=== PATIENT | male | born 1965 | race Caucasian/White ===

== ENCOUNTER 2019-02-01 12:12 | Inpatient (IN) | payer SELFPAY ==
[~2019-02-01] VITALS: Ht 172.7 cm; Wt 75.7 kg
[2019-02-01 12:31] VITALS: BP 124/91
[2019-02-01] MEDS ORDERED: NACL 0.9% 250 ML IV ONE (14:50)
[2019-02-01] MEDS ORDERED: NACL 0.9% 1,000 ML IV SCH (15:42)
[2019-02-01] MEDS ORDERED: DEXT 5% /NACL 0.9% 1,000 ML IV SCH (15:42)
[2019-02-01] MEDS ORDERED: DOCUSATE SODIUM 100 MG GELCAP PO PRN (15:45)
[2019-02-01] MEDS ORDERED: LORazepam 2 MG/ML VIAL IM/IVP PRN (15:45)
[2019-02-01] MEDS ORDERED: HYDROcodone/APAP 7.5/325 MG 1 TAB PO PRN (15:45)
[2019-02-01] MEDS ORDERED: ONDANSETRON 4 MG/2 ML VIAL IM/IVP PRN (15:45)
[2019-02-01] MEDS ORDERED: ACETAMINOPHEN 325 MG TAB PO PRN (15:45)
[2019-02-01 16:41] LABS: BASOPHILS % (AUTO) 0.2 % (0.0-2.0); EOSINOPHILS # (AUTO) 0.1 K/uL (0-0.4); EOSINOPHILS % (AUTO) 0.5 % (0.0-4.0); HEMATOCRIT 45.4 % (36-52); HEMOGLOBIN 15.3 g/dL (12.0-18.0); LYMPHOCYTES # (AUTO) 1.3 K/uL (2.0-11.5); LYMPHOCYTES % (AUTO) 10.3 % (20.5-51.1); MEAN CORPUSCULAR HEMOGLOBIN 29 pg (27-31); MEAN CORPUSCULAR HGB CONC 34 g/dL (33-37); MEAN CORPUSCULAR VOLUME 85.9 fL (80-94); MONOCYTES # (AUTO) 0.7 K/uL (0.8-1.0); NEUTROPHILS # (AUTO) 10.2 K/uL (1.8-7.7); PLATELET COUNT (AUTO) 258 K/uL (140-450); RED BLOOD CELL COUNT(AUTO) 5.28 MIL/uL (4.20-6.10); RED CELL DISTRIBUTION WIDTH 12.9 % (11.6-13.7); WHITE BLOOD COUNT (AUTO) 12.3 K/uL (4.8-10.8)
[2019-02-01 17:00] LABS: PROTHROMBIN TIME 9.9 secs (10.8-13.4)
[2019-02-01 17:32] LABS: ASPARTATE AMINOTRANSFERASE 25 U/L (15-37); CARBON DIOXIDE 25.9 mmol/L (21-32); CHLORIDE 104 mmol/L (98-107); CREATININE 0.7 mg/dL (0.7-1.3); GFR ARICAN-AMERICAN 153 mL/min (>90); GLUCOSE 95 mg/dL (74-106); POTASSIUM 3.9 mmol/L (3.5-5.1); SODIUM SERUM 141 mmol/L (136-145); TOTAL BILIRUBIN 0.8 mg/dL (0.0-1.0); UREA NITROGEN, BLOOD 13 mg/dL (7-18)
[2019-02-01 17:33] LABS: ALBUMIN 4.4 g/dL (3.4-5.0); CHOL/HDL RATIO 4.9 (1-4.5); HDL CHOLESTEROL 42 mg/dL (40-60); LDL (CALC) 138 mg/dL (60-100); MAGNESIUM 1.9 mg/dL (1.8-2.4); PHOSPHORUS 3.4 mg/dL (2.5-4.9); TRIGLYCERIDES 128 mg/dL (30-150)
[2019-02-01 17:34] LABS: AMYLASE 35 U/L (25-115)
[2019-02-01 17:44] VITALS: BP 119/80
[2019-02-01 17:56] LABS: LIPASE 84 U/L (73-393)
[2019-02-01 18:44] LABS: FREE T4 (FREE THYROXINE) 0.86 ng/dL (0.76-1.46); THYROID STIMULATING HORMONE 1.36 uIU/mL (0.34-3.74)
[2019-02-01 18:45] LABS: LACTATE DEHYDROGENASE 268 U/L (85-227)
== END 2019-02-01 18:50 | disposition left against medical advice (07) | DRG 395 ==
LOC: MED 12:12 → MTU 15:37
PROVIDERS: ADMIT General Practice; ATTEND General Practice
DX: T18.5XXA Foreign body in anus and rectum, initial encounter (principal); E78.5 Hyperlipidemia, unspecified; K56.41 Fecal impaction; D72.829 Elevated white blood cell count, unspecified; Z53.29 Procedure and treatment not carried out because of patient's decision for other reasons; X58.XXXA Exposure to other specified factors, initial encounter; Y93.89 Activity, other specified; Y92.89 Other specified places as the place of occurrence of the external cause; Y99.8 Other external cause status; Z87.891 Personal history of nicotine dependence
CPT/HCPCS: 36415; 71045; 74021; 80053; 82140; 82150; 82550; 82553; 83036; 83605; 83615; 83690; 83735; 84100; 84439; 84443; 84484; 85025; 85610; 85730; 87081; 88300; 96361; 96365; 99285; G0482; J7030; J7042; Q0092